=== PATIENT | male | born 1945 | race Caucasian/White ===

== ENCOUNTER 2020-01-28 15:39 | Emergency (ER) | payer OTHER, MEDICARE, SELFPAY ==
[2020-01-28 16:52] VITALS: BP 167/62; PULSE 62; RESP 18; TEMP 36.5; O2SAT 96
--- NOTE | 2020-01-28 17:11 | ED_ITS ---
HPI - Eye Problem General Chief complaint: Eye Problems <STACEY Sood Last Filed: 01/28/20 18:04> Stated complaint: FB IN EYE <STACEY Sood Last Filed: 01/28/20 18:04> Time Seen by Provider: 01/28/20 17:02 <STACEY Sood Last Filed: 01/28/20 18:04> Source: patient <STACEY Sood Last Filed: 01/28/20 18:04> Mode of arrival: ambulatory <STACEY Sood Last Filed: 01/28/20 18:04> Limitations: no limitations <STACEY Sood Last Filed: 01/28/20 18:04> History of Present Illness HPI Narrative: 74-year-old male presenting to the ED with complaints of foreign body and eye. Reports that his stool were backed up therefore he put a replacement and was grinding metal on Friday and since then has been having watery discharge and irritation to left eye. Denies changes in vision. Denies any fevers or any other symptoms related to this. Reports he is up-to-date on tetanus vaccine. <STACYE Sood Last Filed: 01/28/20 18:04> Related Data Home medications: Previous Rx's Medication Instructions Recorded erythromycin 0.5 inch OPHTHALMIC (EYE) QID #3.5 01/28/20 g NS <STACEY Sood Last Filed: 01/28/20 18:04> Allergies/adverse reactions: Allergies Allergy/AdvReac Type Severity Reaction Status Date / Time ibuprofen [IBUPROFEN] Allergy Intermediate ITCHING Verified 01/28/20 17:33 Sulfa (Sulfonamide Allergy Intermediate RASH Verified 01/28/20 17:33 Antibiotics) [SULFA (SULFONAMIDE ANTIBIOTICS)] clarithromycin AdvReac Unknown Verified 01/28/20 17:33 <STACEY Sood Last Filed: 01/28/20 18:04> Review of Systems Review of Systems: Yes all other systems are reviewed and are negative <STACEY Sood Last Filed: 01/28/20 18:04> PMFSH Past Medical History Attestation statement: The following information was validated with the patient. <STACEY Sood Last Filed: 01/28/20 18:04> Medical History: Medical History Acute Crohn's disease PVC (premature ventricular contraction) <STACEY Sood - Last Filed: 01/28/20 18:04> Surgical History: Surgical History Previous back surgery <STACEY Sood - Last Filed: 01/28/20 18:04> Social History Social History: Social History Alcohol intake: former Smoked in Last 30 Days: No Use of substances other than those prescribed or required for medical reasons: No Advance Directives: No Advance Directives Information Provided: No <STACEY Sood - Last Filed: 01/28/20 18:04> Physical Exam Vital Signs: Vital Signs: Vital Signs Temp Pulse Resp BP Pulse Ox 01/28/20 17:23 97.7 F 62 16 167/62 H 96 01/28/20 16:52 97.7 F 62 18 167/62 H 96 Body Mass Index 30.5 <STACEY Sood - Last Filed: 01/28/20 18:04> Vital Signs: Vital Signs Temp Pulse Resp BP Pulse Ox 01/28/20 17:23 97.7 F 62 16 167/62 H 96 01/28/20 16:52 97.7 F 62 18 167/62 H 96 Body Mass Index 30.5 <Abdirizak Connelly MD - Last Filed: 02/01/20 15:09> Const: General: cooperative, healthy appearing, comfortable, no acute distress, well developed, alert, awake and Physically active <STACEY Sood - Last Filed: 01/28/20 18:04> Nutritional Appearance: average body habitus and well nourished <STACEY Sood - Last Filed: 01/28/20 18:04> Orientation/consciousness: patient oriented x3 <STACEY Sood - Last Filed: 01/28/20 18:04> Limitations: no limitations <STACEY Sood - Last Filed: 01/28/20 18:04> HENMT: Head: Yes normal to inspection, Yes No palpable skull fracture present, Yes normocephalic and Yes atraumatic <STACEY Sood - Last Filed: 01/28/20 18:04> Ears: hearing grossly normal bilaterally <STACEY Sood - Last Filed: 01/28/20 18:04> General nose exam: Normal external nose present <STACEY Sood Last Filed: 01/28/20 18:04> Face and sinus: Yes normal facial exam <STACEY Sood - Last Filed: 01/28/20 18:04> Mouth: moist mucous membranes <STACEY Sood - Last Filed: 01/28/20 18:04> Eyes: General: appearance normal, both eyes and all related structures <STACEY Sood - Last Filed: 01/28/20 18:04> Visual Solano: normal visual solano by confrontation <STACEY Sood Last Filed: 01/28/20 18:04> Alignment and Position: alignment normal <STACEY Sood - Last Filed: 01/28/20 18:04> Periorbital: periorbital findings normal <STACEY Sood - Last Filed: 01/28/20 18:04> Eyelids: Yes eyelids normal <STACEY Sood - Last Filed: 01/28/20 18:04> Conjunctivae: conjunctivae normal <STACEY Sood - Last Filed: 01/28/20 18:04> Sclerae: sclerae normal <STACEY Sood - Last Filed: 01/28/20 18:04> Corneas: corneas abnormal (Two foreign bodies noted to the cornea) on the left and fluorescein used <STACEY Sood - Last Filed: 01/28/20 18:04> Pupils: Equal, round and reactive pupils present, Pupils normal by confrontation and Pupil accommodation reflex normal <STACEY Sood - Last Filed: 01/28/20 18:04> EOM: EOMs intact bilaterally <STACEY Sood - Last Filed: 01/28/20 18:04> Direct Ophthalmoscopy: normal light reflex, no photophobia, no papilledema, fundi normal bilaterally and anterior chamber normal <STACEY Sood - Last Filed: 01/28/20 18:04> Neck: Neck: Yes normal visual inspection, Yes full ROM, Yes no lymphadenopathy, Yes no meningeal signs, Yes trachea midline and Yes supple <Wendy Myers [place] - Last Filed: 01/28/20 18:04> Chest: Chest palpation & inspection: normal inspection of the chest <Wendy Myers [employer] Last Filed: 01/28/20 18:04> Resp: Effort & Inspection: normal respiratory effort and able to speak in complete sentences <Wendy Myers [place] - Last Filed: 01/28/20 18:04> Auscultation: clear to auscultation bilaterally, no crackles, no rales, no rhonchi and no wheezes <Wendy Myers [place] - Last Filed: 01/28/20 18:04> Cardio: Rate: regular rate <Wendy Myers [place] - Last Filed: 01/28/20 18:04> Rhythm: regular rhythm <Wendy Myers [place] - Last Filed: 01/28/20 18:04> Heart sounds: S1 normal heart sound present and S2 normal heart sound present <Wendy Myers [place] - Last Filed: 01/28/20 18:04> Peripheral pulses: Peripheral pulses 2+ throughout <Wendy Myers [place] - Last Filed: 01/28/20 18:04> GI: Inspection: Yes normal to inspection <Wendy Myers [place] - Last Filed: 01/28/20 18:04> Palpation (GI): Soft to palpation, nontender and No hepatosplenomegaly present <Wendy Myers [place] - Last Filed: 01/28/20 18:04> Percussion: Yes normal to percussion <Wendy Myers [place] - Last Filed: 01/28/20 18:04> Auscultation: normal bowel sounds <Wendy Myers [place] - Last Filed: 01/28/20 18:04> : General: Yes no CVA tenderness <STACEY Sood - Last Filed: 01/28/20 18:04> Back/Spine/Pelvis: Back: no CVA tenderness <STACEY Sood Last Filed: 01/28/20 18:04> Cervical Spine: normal cervical lordosis and cervical ROM normal <Wendy Myers [place] - Last Filed: 01/28/20 18:04> Thoracic/Lumbar Spine: thoracic and lumbar spine normal to inspection and thoraco-lumbar ROM normal <Wendy Myers [place] - Last Filed: 01/28/20 18:04> Skin: General skin exam: no rashes or lesions noted, elasticity normal and turgor normal <STACEY Sood - Last Filed: 01/28/20 18:04> Trauma: no lacerations or abrasions <Wendy Myers [place] - Last Filed: 01/28/20 18:04> Wounds: no wounds <Wendy Myers [place] - Last Filed: 01/28/20 18:04> Hair: normal <Wendy Myers [place] - Last Filed: 01/28/20 18:04> Nails: normal <Wedny Myers [place] - Last Filed: 01/28/20 18:04> Neuro: General: patient oriented x3 and no meningeal signs <STACEY Sood - Last Filed: 01/28/20 18:04> Cranial nerves: Yes CN's II-XII intact bilaterally and Yes Equal, round and reactive pupils present <Wendy Myers [place] - Last Filed: 01/28/20 18:04> Cognition (Neuro): normal cognition <STACEY Sood - Last Filed: 01/28/20 18:04> Gait exam (Neuro): Normal gait present <STACEY Sood - Last Filed: 01/28/20 18:04> Motor exam (neuro): 5/5 motor strength present throughout <Wendy Myers [place] - Last Filed: 01/28/20 18:04> Extrem: General: Yes normal to inspection, Yes full ROM, Yes capillary refill normal, Yes no clubbing, cyanosis or edema, No no pedal edema, No no calf tenderness, Yes normal gait and No edema <Wendy Myers [place] - Last Filed: 18:04> Right upper extremity: normal to inspection, full ROM and normal capillary refill; no edema <STACEY Sood - Last Filed: 01/28/20 18:04> Left upper extremity: normal to inspection, full ROM and normal capillary refill; no edema <STACEY Sood - Last Filed: 01/28/20 18:04> Right lower extremity: normal to inspection, full ROM and normal capillary refill; no edema <STACEY Sood - Last Filed: 01/28/20 18:04> Left lower extremity: normal to inspection, full ROM and normal capillary refill; no edema <STACEY Sood - Last Filed: 01/28/20 18:04> Psych: Appearance: grossly normal and well kempt <STACEY Sood - Last Filed: 01/28/20 18:04> Mental Status: mental status grossly normal <STACEY Sood - Last Filed: 01/28/20 18:04> Speech and movement: Normal speech and movement present and Clear speech present <STACEY Sood - Last Filed: 01/28/20 18:04> Affect: normal affect <STACEY Sood - Last Filed: 01/28/20 18:04> Attitude: cooperative <STACEY Sood - Last Filed: 01/28/20 18:04> Thought process: Normal thought process present <STACEY Sood - Last Filed: 01/28/20 18:04> Thought content: Normal thought content present <STACEY Sood - Last Filed: 01/28/20 18:04> Insight: Good insight present (Psych) <STACEY Sood - Last Filed: 01/28/20 18:04> Judgement: Good judgement present (Psych) <STACEY Sood - Last Filed: 01/28/20 18:04> Course Course Course Narrative: patient is now status post foreign body removal. Will place on antibiotics and instructions follow up with Dr. Fischer within the next 3 day s. Patient understands agrees with this plan. <STACEY Sood - Last Filed: 01/28/20 18:04> I agree with the history. My physical exam is well developed well nourished, normal cephalic, PERRL, EOMI, normal pharynx, supple neck, lungs clear, CV RRR, abdomen nontender, Neuro intact and nonfocal, psychiatric at baseline. Patient with FB seen under slit lamp <Abdirizak Connelly MD - Last Filed: 02/01/20 15:09> Procedures Procedure Narrative Procedure Narrative: Patient had proparicaine place in eye for anesthesia. Under slit lamp and with tuberculine syringe and needle metal foreign body removed. Rust ring remained. Patient place on topical antibiotics and referred to opthalmology. <Abdirizak Connelly MD - Last Filed: 02/01/20 15:09> FB Removal Eye Time Out performed: Yes <STACEY Sood - Last Filed: 01/28/20 18:04> Location: eye (L) <STACEY Sood - Last Filed: 01/28/20 18:04> Topical anesthetic used: tetracaine <STACEY Sood - Last Filed: 01/28/20 18:04> Foreign body: metal <STACEY Sood - Last Filed: 01/28/20 18:04> Technique: irrigation, cotton tip swab and needle <STACEY Sood Last Filed: 01/28/20 18:04> Procedure performed under: slit-lamp <STACEY Sood - Last Filed: 01/28/20 18:04> Post-procedure medication: ophthalmic antibiotic <STACEY Sood - Last Filed: 01/28/20 18:04> Patient tolerated procedure: well and no complications <STACEY Sood - Last Filed: 01/28/20 18:04> Complications: residual rust ring <STACEY Sood - Last Filed: 01/28/20 18:04> Discharge Plan Discharge Clinical Impression: Corneal rust ring of left eye, Foreign body in eye <STACEY Sood - Last Filed: 01/28/20 18:04> Patient Disposition: Home, Self-Care <STACEY Sood - Last Filed: 01/28/20 18:04> Instructions: Eye Foreign Body (ED) <STACEY Sood Last Filed: 01/28/20 18:04> Prescriptions: New erythromycin 5 mg/gram (0.5 %) ointment 0.5 inch ophthalmic (eye) QID Qty: 3.5 RF: 0 <STACEY Sood Last Filed: 01/28/20 18:04> Referrals: Delano Fischer [Physician] - 1 day <STACEY Sood - Last Filed: 01/28/20 18:04> Interventions: ED Discharge Assessment Last Done: 01/28/20 18:51 <STACEY Sood - Last Filed: 01/28/20 18:04> Discharge Date/Time: 01/28/20 18:35 <STACEY Sood - Last Filed: 01/28/20 18:04> Print Language: Georgian <STACEY Sood - Last Filed: 01/28/20 18:04>
[2020-01-28 17:23] VITALS: BP 167/62; PULSE 62; RESP 16; TEMP 36.5; O2SAT 96; BMI 30.5
--- NOTE | 2020-01-28 17:52 | ED.EYEPROB ---
HPI - Eye Problem General Chief complaint: Eye Problems Stated complaint: FB IN EYE Time Seen by Provider: 01/28/20 17:02 Related Data Allergies Allergy/AdvReac Type Severity Reaction Status Date / Time ibuprofen [IBUPROFEN] Allergy Intermediate ITCHING Verified 01/28/20 17:33 Sulfa (Sulfonamide Allergy Intermediate RASH Verified 01/28/20 17:33 Antibiotics) [SULFA (SULFONAMIDE ANTIBIOTICS)] clarithromycin AdvReac Unknown Verified 01/28/20 17:33 PMFSH Past Medical History Medical History (Updated 01/28/20 @ 17:27 by Guillermina Leal) Acute Crohn's disease PVC (premature ventricular contraction) Surgical History (Updated 01/28/20 @ 17:27 by Guillermina Leal) Previous back surgery Social History Social History Advance Directives: No Advance Directives Information Provided: No Physical Exam Vital Signs: Vital Signs: Vital Signs Temp Pulse Resp BP Pulse Ox 01/28/20 17:23 97.7 F 62 16 167/62 H 96 01/28/20 16:52 97.7 F 62 18 167/62 H 96 Body Mass Index 30.5 Course Course Course Narrative: I agree with the history. My physical exam is well developed well nourished, normal cephalic, PERRL, EOMI, normal pharynx, supple neck, lungs clear, CV RRR, abdomen nontender, Neuro intact and nonfocal, psychiatric at baseline. Left eye with metal foreign body Procedures Procedure Narrative Procedure Narrative: using slit lamp and RUSTY farrell remove metal impaled in cornea
[2020-01-28 18:25] VITALS: BP 166/76; PULSE 58; RESP 18; TEMP 36.6; O2SAT 97
[2020-01-28] MEDS: Tetracaine HCl/PF 0.5% Oph Sol 4 ML DROPS 2 DROP EYE-LEFT (18:34)
[2020-01-28] MEDS: Erythromycin Base 0.5% Oph Oin 1 GM TUBE 1 CM EYE-LEFT (18:35)
[2020-01-28] MEDS: Fluorescein Sodium STRIP 1 STRIP EYE-LEFT (18:35)
== END 2020-01-28 18:35 | disposition home or self-care (01) ==
PROVIDERS: Emergency Provider Emergency Medicine
DX: T15.02XA Foreign body in cornea, left eye, initial encounter (principal); H57.12 Ocular pain, left eye; X58.XXXA Exposure to other specified factors, initial encounter; Y93.9 Activity, unspecified; Y92.9 Unspecified place or not applicable
CPT/HCPCS: 65222; 99283; 99284

== ENCOUNTER 2021-01-18 10:50 | Inpatient (IN) | payer OTHER, SELFPAY ==
--- NOTE | ~2021-01-18 | CT_ITS ---
EXAMINATION: CT ABDOMEN AND PELVIS WITHOUT CONTRAST CLINICAL INFORMATION: Lower abdominal pain and constipation. Rule out obstruction. COMPARISON: Previous CT of the abdomen and pelvis August 2010 TECHNIQUE: Multidetector volumetric imaging was performed from the superior aspect of the liver through the pubic symphysis. Sagittal and coronal reformatted images were obtained on the technologist's workstation. This CT examination was performed using dose optimization techniques as appropriate, variously including the following: *Automated exposure control *Adjustment of mA and/or kV according to patient size (this includes techniques or standardized protocols for targeted exams where dose is matched to indication/reason for exam; i.e. extremities or head) *Use of iterative reconstruction technique DLP: 655 mGy-cm FINDINGS: LUNG BASES: There are increased peripheral interstitial markings questionable for mild interstitial lung. There is a 5 mm peripheral right lower lobe nodule axial image 6 series 3 that is stable from 2011 exam.. LIVER, GALLBLADDER, AND BILIARY TREE: The liver is normal in size, shape, and attenuation. No focal hepatic lesion or biliary ductal dilatation is present. The gallbladder is unremarkable with no evidence of radiopaque gallstones, gallbladder wall thickening, or obvious pericholecystic inflammatory changes. PANCREAS: Unremarkable. SPLEEN: Unremarkable. ADRENAL GLANDS: There is a 1 cm right adrenal nodule that is able 2011 exam. The left adrenal gland is normal. KIDNEYS AND URETERS: The kidneys are normal in size, shape, and attenuation. No hydronephrosis, hydroureter, or calculi seen. No perinephric stranding. BLADDER: Unremarkable. GASTROINTESTINAL TRACT: The colon is redundant. There is stool in the colon suggestive of constipation. There are no dilated loops of bowel to suggest obstruction. The small and large bowel are otherwise unremarkable. The appendix is unremarkable. The stomach is unremarkable. ABDOMINAL WALL: There is a small umbilical hernia containing fat. LYMPH NODES: Normal. VASCULAR: Unremarkable. PELVIC VISCERA: The prostate gland is slightly enlarged measuring 4 x 6 cm OSSEOUS STRUCTURES: There are degenerative changes of the spine. There is increased subchondral sclerosis and lucency in the femoral head suggestive of AVN. CT/CT abdomen pelvis wo con IMPRESSION: Redundant colon and constipation. No evidence of obstruction. Stable right adrenal nodule. Enlarged prostate gland. Question mild interstitial lung disease at the lung bases. Stable small right lower lobe pulmonary nodule. Bilateral femoral head AVN.
[2021-01-18 11:46] VITALS: BP 131/57; PULSE 74; RESP 18; TEMP 36.7; O2SAT 97; BMI 30.9
[2021-01-18 14:19] VITALS: BP 125/66; PULSE 86; RESP 16; O2SAT 98
--- NOTE | 2021-01-18 14:54 | ED.ABDPAIN ---
HPI - Abdominal Pain General Chief Complaint: GI Bleed <STACEY Banegas - Last Filed: 01/18/21 17:45> Stated Complaint: RECTAL BLEEDING <STACEY Banegas - Last Filed: 01/18/21 17:45> Time Seen by Provider: 01/18/21 14:15 <STACEY Banegas - Last Filed: 01/18/21 17:45> Source: patient <STCAEY Banegas - Last Filed: 01/18/21 17:45> Mode of arrival: ambulatory <STACEY Banegas - Last Filed: 01/18/21 17:45> History of Present Illness HPI narrative: 75-year-old male with a past medical history of Crohn's, PVC, presenting to the ED complaining of constipation without BM x3 days. Reports lower abdominal discomfort, also urinary retention since this morning. Reports using OTC medications for constipation and an enema, s/p using enema had large gush of bright red rectal bleeding with pain. Denies nausea, vomiting, fever, chills, dysuria/hematuria. Reports is passing flatus. Denies taking anticoagulation <STACEY Banegas - Last Filed: 01/18/21 17:45> MD elicited complaint: abdominal pain <STACEY Banegas Last Filed: 01/18/21 17:45> Related Data Home Medications: Home Medications Medication Instructions Recorded Confirmed acetaminophen 650 mg tablet 650 mg PO QID PRN 01/18/21 01/18/21 acyclovir 400 mg tablet 400 mg PO BID 01/18/21 01/18/21 albuterol sulfate 90 mcg/actuation 2 puff INHALATION Q4-6H PRN 01/18/21 01/18/21 aerosol inhaler (ProAir HFA) aspirin 81 mg tablet,delayed 81 mg PO DAILY 01/18/21 01/18/21 release atorvastatin 80 mg tablet 80 mg PO DAILY 01/18/21 01/18/21 flecainide 150 mg tablet 150 mg PO Q12H 01/18/21 01/18/21 gabapentin 300 mg capsule 300 mg PO BEDTIME 01/18/21 01/18/21 lisinopril 30 mg tablet 30 mg PO BID 01/18/21 01/18/21 melatonin 1 mg tablet 1 mg PO BEDTIME PRN 01/18/21 01/18/21 montelukast 10 mg tablet 10 mg PO DAILY 01/18/21 01/18/21 tamsulosin 0.4 mg capsule 0.4 mg PO DAILY 01/18/21 01/18/21 tiotropium bromide 2.5 2 puff INHALATION DAILY 01/18/21 01/18/21 mcg/actuation mist for inhalation (Spiriva Respimat) <STACEY Banegas Last Filed: 01/18/21 17:45> Allergies/Adverse Reactions: Allergies Allergy/AdvReac Type Severity Reaction Status Date / Time ibuprofen [IBUPROFEN] Allergy Intermediate ITCHING Verified 01/18/21 11:46 Sulfa (Sulfonamide Allergy Intermediate RASH Verified 01/18/21 11:46 Antibiotics) [SULFA (SULFONAMIDE ANTIBIOTICS)] clarithromycin AdvReac Unknown Verified 01/18/21 11:46 <STACEY Banegas Last Filed: 01/18/21 17:45> Review of Systems Review of Systems Constitutional: No Fever, No Chills,No Fatigue, No Malaise ENT/Mouth: No Ear Pain, No Nasal Congestion, No sore throat Eyes: No Eye Pain, No Swelling, No Redness, No Discharge Cardiovascular: No Chest Pain, No SOB, No Palpitations Respiratory: No Cough, No Dyspnea Gastrointestinal: No Nausea, No Vomiting, No Diarrhea, + Constipation, + Abdominal pain, +brbpr, No Melena Genitourinary: No irregular bleeding, No Dysuria, No Urinary Frequency, No Hematuria, No Flank Pain Musculoskeletal: No joint pain, No Myalgias, No Joint Swelling Skin: No Skin Lesions, No rash Neuro: No Weakness, No Numbness, No Dizziness, No Headache <STACEY Banegas Last Filed: 01/18/21 17:45> Yes all other systems are reviewed and are negative <STACEY Banegas Last Filed: 01/18/21 17:45> Physical Exam Vital Signs: Vital Signs: Last Vital Signs Temp 98.0 F 01/18/21 11:46 Pulse 76 01/18/21 16:21 Resp 16 01/18/21 16:21 BP 154/58 H 01/18/21 16:21 Pulse Ox 98 01/18/21 16:21 Body Mass Index 30.9 <STACEY Banegas Last Filed: 01/18/21 17:45> Vital Signs: Last Vital Signs Temp 98.0 F 01/18/21 11:46 Pulse 76 01/18/21 16:21 Resp 16 01/18/21 16:21 BP 154/58 H 01/18/21 16:21 Pulse Ox 98 01/18/21 16:21 Body Mass Index 30.9 <Rene Jolly MD - Last Filed: 01/18/21 20:00> Const: General: cooperative, healthy appearing and no acute distress <STACEY Banegas - Last Filed: 01/18/21 17:45> Orientation/consciousness: patient oriented x3 <STACEY Banegas - Last Filed: 01/18/21 17:45> Limitations: no limitations <STACEY Banegas - Last Filed: 01/18/21 17:45> HENMT: Head: Yes normal to inspection <STACEY Banegas - Last Filed: 01/18/21 17:45> Ears: hearing grossly normal bilaterally <STACEY Banegas - Last Filed: 01/18/21 17:45> General nose exam: Normal external nose present <STACEY Banegas - Last Filed: 01/18/21 17:45> Face and sinus: Yes normal facial exam <STACEY Banegas - Last Filed: 01/18/21 17:45> Eyes: General: appearance normal, both eyes and all related structures <STACEY Banegas - Last Filed: 01/18/21 17:45> EOM: EOMs intact bilaterally <STACEY Banegas - Last Filed: 01/18/21 17:45> Neck: Neck: Yes normal visual inspection <STACEY Banegas - Last Filed: 01/18/21 17:45> Resp: Effort & Inspection: normal respiratory effort <STACEY Banegas - Last Filed: 01/18/21 17:45> Auscultation: clear to auscultation bilaterally, no rales and no wheezes <STACEY Banegas - Last Filed: 01/18/21 17:45> Cardio: Rate: regular rate <STACEY Banegas - Last Filed: 01/18/21 17:45> Heart sounds: S1 normal heart sound present and S2 normal heart sound present <Gabby Allyssa PA - Last Filed: 01/18/21 17:45> GI: Inspection: Yes normal to inspection <Gabby Allyssa PA - Last Filed: 01/18/21 17:45> Palpation (GI): Soft to palpation, Tenderness to palpation present (GI) (Lower abdomen), no guarding and not rigid <Gabby Allyssa PA - Last Filed: 01/18/21 17:45> Rectal Exam - Male: Yes fecal impaction <Gabby Allyssa PA - Last Filed: 01/18/21 17:45> : General: Yes no CVA tenderness <Gabbyniall Spivey PA - Last Filed: 01/18/21 17:45> Back/Spine/Pelvis: Back: no CVA tenderness <Gabby Allyssa PA - Last Filed: 01/18/21 17:45> Skin: Rashes: no rashes <Gabby Spivey PA - Last Filed: 01/18/21 17:45> Wounds: no wounds <Gabby Allyssa PA - Last Filed: 01/18/21 17:45> Neuro: General: patient oriented x3 <Gabbyniall Spivey PA - Last Filed: 01/18/21 17:45> Gait exam (Neuro): Normal gait present <Gabbyniall Spivey PA - Last Filed: 01/18/21 17:45> Extrem: General: Yes normal to inspection <Gabby Allyssa PA - Last Filed: 01/18/21 17:45> Course Course Course Narrative: -no leukocytosis, H&H 11.5/35.5, occult stool positive > patient reports recently had colonoscopy about 1 year ago at [facility] will try to obtain records -noted hyperkalemia to 6.1 > IV calcium gluconate, insulin, and dextrose ordered. Patient also noted to be an ALIYAH with a BUN of 32, creatinine 1.44 -Moncada catheter placed, patient unable to pass urine. CT abdomen pelvis wo con IMPRESSION: Redundant colon and constipation. No evidence of obstruction. Stable right adrenal nodule. Enlarged prostate gland. Question mild interstitial lung disease at the lung bases. Stable small right lower lobe pulmonary nodule. Bilateral femoral head AVN. > GI consulted. Plan is for admission. -[id number]--patient admitted to hospital service <STACEY Banegas - Last Filed: 01/18/21 17:45> MDM - Abdominal Pain MDM Narrative Medical decision making narrative: 75-year-old male with a past medical history of Crohn's, PVC, presenting to the ED complaining of constipation without BM x3 days with large gush of bright red rectal bleeding with s/p using enema. Reports lower abdominal discomfort, also urinary retention since this morning. On exam VSS, NAD/nontoxic, abdomen soft the lower TTP, fecal impaction noted disimpacted on initial exam, brown stool noted on exam. No CVAT. Patient is nontoxic appearing. Concern for SBO vs constipation vs diverticulitis or appendicitis. Concern for urinary retention. 562 cc on bladder scan Plan: Labs, UA, CT AP, IVF, occult stool, reassess <STACEY Banegas - Last Filed: 01/18/21 17:45> Medical Records Attestation: I reviewed the patient's medical records. <STACEY aBnegas - Last Filed: 01/18/21 17:45> Lab Data Attestation: I reviewed the patient's lab results. <STACEY Banegas - Last Filed: 01/18/21 17:45> Result diagrams: : 01/18/21 14:50 01/18/21 14:50 <STACEY Banegas - Last Filed: 01/18/21 17:45> Labs: Lab Results 01/18/21 01/18/21 01/18/21 Range/Units 14:42 14:50 14:50 WBC 10.4 (4.8-10.8) X10*3/uL RBC 3.50 L (4.60-5.80) X10*6/uL Hgb 11.5 L (14.0-18.0) g/dl Hct 35.5 L (42-52) % MCV 101.4 H (80-98) fL MCH 32.9 (27.0-33.0) pg MCHC 32.4 (31.0-36.0) g/dl RDW 15.3 (11.0-16.0) % Plt Count 232 (160-400) X10*3/uL MPV 9.3 L (9.4-12.4) fL Immature Gran % (Auto) 0.7 H (0.0-0.4) % Neut % (Auto) 78.8 H (45-73) % Lymph % (Auto) 11.4 L (20-40) % [place] % (Auto) 7.7 (2-11) % Eos % (Auto) 1.1 (0-4) % Baso % (Auto) 0.3 (0-2) % Lymph # (Auto) 1.2 (1.2-4.9) X10*3/uL [place] # (Auto) 0.8 (0.1-1.2) X10*3/uL Eos # (Auto) 0.1 (0.0-0.4) X10*3/uL Baso # (Auto) 0.0 (0.0-0.2) X10*3/uL Abs Immat Gran (auto) 0.07 H (0.00-0.03) X10*3/uL Absolute Neuts (auto) 8.2 (2.0-8.3) X10*3/uL Absolute Nucleated RBC 0.000 (0.0-0.012) X10*3/uL Nucleated RBC % (auto) 0.0 (0.0-0.2) /100WBC Sodium 138 (135-145) mmol/L Potassium 6.1 H* (3.3-5.1) mmol/L Chloride 111 H (96-108) mmol/L Carbon Dioxide 19 L (22-29) mmol/L Anion Gap 14 (12-20) BUN 32 H (9-16) mg/dL Creatinine 1.44 H (0.5-1.4) mg/dL Estim Creat Clear Calc 53.4 Estimated GFR 48 Random Glucose 104 (60-115) mg/dL Calcium 9.3 (8.4-10.2) mg/dL Magnesium 2.3 (1.6-2.6) mg/dL Total Bilirubin 0.5 (0.0-1.0) mg/dL Direct Bilirubin 0.2 (0.0-0.5) mg/dL AST 23 (5-37) U/L ALT 33 (0-40) U/L Alkaline Phosphatase 100 (39-117) U/L Total Protein 6.5 (6.5-8.0) g/dL Albumin 4.2 (3.5-5.0) g/dL Lipase 20 (8-78) U/L Urine Color Urine Appearance Urine pH (5.0-8.0) Ur Specific [place] (1.005-1.025) Urine Protein (NEG-TRACE) MG/DL Urine Glucose (UA) (NEG) MG/DL Urine Ketones (NEG) MG/DL Urine Blood (NEG) Urine Nitrite (NEG) Ur Leukocyte Esterase (NEG) Urine RBC (0) /HPF Urine WBC (0-4) /HPF Ur Squamous Epith Cells /LPF Urine Bacteria /LPF Urine Mucus /LPF Stool Occult Blood POSITIVE (NEGATIVE) COVID-19 (JAXON) (Negative) COVID-19 Clin Com 01/18/21 01/18/21 Range/Units 14:51 16:25 WBC (4.8-10.8) X10*3/uL RBC (4.60-5.80) X10*6/uL Hgb (14.0-18.0) g/dl Hct (42-52) % MCV (80-98) fL MCH (27.0-33.0) pg MCHC (31.0-36.0) g/dl RDW (11.0-16.0) % Plt Count (160-400) X10*3/uL MPV (9.4-12.4) fL Immature Gran % (Auto) (0.0-0.4) % Neut % (Auto) (45-73) % Lymph % (Auto) (20-40) % [place] % (Auto) (2-11) % Eos % (Auto) (0-4) % Baso % (Auto) (0-2) % Lymph # (Auto) (1.2-4.9) X10*3/uL [place] # (Auto) (0.1-1.2) X10*3/uL Eos # (Auto) (0.0-0.4) X10*3/uL Baso # (Auto) (0.0-0.2) X10*3/uL Abs Immat Gran (auto) (0.00-0.03) X10*3/uL Absolute Neuts (auto) (2.0-8.3) X10*3/uL Absolute Nucleated RBC (0.0-0.012) X10*3/uL Nucleated RBC % (auto) (0.0-0.2) /100WBC Sodium (135-145) mmol/L Potassium (3.3-5.1) mmol/L Chloride (96-108) mmol/L Carbon Dioxide (22-29) mmol/L Anion Gap (12-20) BUN (9-16) mg/dL Creatinine (0.5-1.4) mg/dL Estim Creat Clear Calc Estimated GFR Random Glucose (60-115) mg/dL Calcium (8.4-10.2) mg/dL Magnesium (1.6-2.6) mg/dL Total Bilirubin (0.0-1.0) mg/dL Direct Bilirubin (0.0-0.5) mg/dL AST (5-37) U/L ALT (0-40) U/L Alkaline Phosphatase (39-117) U/L Total Protein (6.5-8.0) g/dL Albumin (3.5-5.0) g/dL Lipase (8-78) U/L Urine Color YELLOW Urine Appearance CLEAR Urine pH 6.5 (5.0-8.0) Ur Specific [place] 1.020 (1.005-1.025) Urine Protein NEG (NEG-TRACE) MG/DL Urine Glucose (UA) NEG (NEG) MG/DL Urine Ketones NEG (NEG) MG/DL Urine Blood TRACE (NEG) Urine Nitrite NEG (NEG) Ur Leukocyte Esterase NEG (NEG) Urine RBC 1-4 (0) /HPF Urine WBC 0 (0-4) /HPF Ur Squamous Epith Cells TRACE /LPF Urine Bacteria TRACE /LPF Urine Mucus TRACE /LPF Stool Occult Blood (NEGATIVE) COVID-19 (JAXON) Negative (Negative) COVID-19 Clin Com See Note <STACEY Banegas - Last Filed: 01/18/21 17:45> Lab Results 01/18/21 01/18/21 01/18/21 Range/Units 14:42 14:50 14:50 WBC 10.4 (4.8-10.8) X10*3/uL RBC 3.50 L (4.60-5.80) X10*6/uL Hgb 11.5 L (14.0-18.0) g/dl Hct 35.5 L (42-52) % MCV 101.4 H (80-98) fL MCH 32.9 (27.0-33.0) pg MCHC 32.4 (31.0-36.0) g/dl RDW 15.3 (11.0-16.0) % Plt Count 232 (160-400) X10*3/uL MPV 9.3 L (9.4-12.4) fL Immature Gran % (Auto) 0.7 H (0.0-0.4) % Neut % (Auto) 78.8 H (45-73) % Lymph % (Auto) 11.4 L (20-40) % [place] % (Auto) 7.7 (2-11) % Eos % (Auto) 1.1 (0-4) % Baso % (Auto) 0.3 (0-2) % Lymph # (Auto) 1.2 (1.2-4.9) X10*3/uL [place] # (Auto) 0.8 (0.1-1.2) X10*3/uL Eos # (Auto) 0.1 (0.0-0.4) X10*3/uL Baso # (Auto) 0.0 (0.0-0.2) X10*3/uL Abs Immat Gran (auto) 0.07 H (0.00-0.03) X10*3/uL Absolute Neuts (auto) 8.2 (2.0-8.3) X10*3/uL Absolute Nucleated RBC 0.000 (0.0-0.012) X10*3/uL Nucleated RBC % (auto) 0.0 (0.0-0.2) /100WBC Sodium 138 (135-145) mmol/L Potassium 6.1 H* (3.3-5.1) mmol/L Chloride 111 H (96-108) mmol/L Carbon Dioxide 19 L (22-29) mmol/L Anion Gap 14 (12-20) BUN 32 H (9-16) mg/dL Creatinine 1.44 H (0.5-1.4) mg/dL Estim Creat Clear Calc 53.4 Estimated GFR 48 Random Glucose 104 (60-115) mg/dL Calcium 9.3 (8.4-10.2) mg/dL Magnesium 2.3 (1.6-2.6) mg/dL Total Bilirubin 0.5 (0.0-1.0) mg/dL Direct Bilirubin 0.2 (0.0-0.5) mg/dL AST 23 (5-37) U/L ALT 33 (0-40) U/L Alkaline Phosphatase 100 (39-117) U/L Total Protein 6.5 (6.5-8.0) g/dL Albumin 4.2 (3.5-5.0) g/dL Lipase 20 (8-78) U/L Urine Color Urine Appearance Urine pH (5.0-8.0) Ur Specific [place] (1.005-1.025) Urine Protein (NEG-TRACE) MG/DL Urine Glucose (UA) (NEG) MG/DL Urine Ketones (NEG) MG/DL Urine Blood (NEG) Urine Nitrite (NEG) Ur Leukocyte Esterase (NEG) Urine RBC (0) /HPF Urine WBC (0-4) /HPF Ur Squamous Epith Cells /LPF Urine Bacteria /LPF Urine Mucus /LPF Stool Occult Blood POSITIVE (NEGATIVE) COVID-19 (JAXON) (Negative) COVID-19 Clin Com 01/18/21 01/18/21 Range/Units 14:51 16:25 WBC (4.8-10.8) X10*3/uL RBC (4.60-5.80) X10*6/uL Hgb (14.0-18.0) g/dl Hct (42-52) % MCV (80-98) fL MCH (27.0-33.0) pg MCHC (31.0-36.0) g/dl RDW (11.0-16.0) % Plt Count (160-400) X10*3/uL MPV (9.4-12.4) fL Immature Gran % (Auto) (0.0-0.4) % Neut % (Auto) (45-73) % Lymph % (Auto) (20-40) % [place] % (Auto) (2-11) % Eos % (Auto) (0-4) % Baso % (Auto) (0-2) % Lymph # (Auto) (1.2-4.9) X10*3/uL [place] # (Auto) (0.1-1.2) X10*3/uL Eos # (Auto) (0.0-0.4) X10*3/uL Baso # (Auto) (0.0-0.2) X10*3/uL Abs Immat Gran (auto) (0.00-0.03) X10*3/uL Absolute Neuts (auto) (2.0-8.3) X10*3/uL Absolute Nucleated RBC (0.0-0.012) X10*3/uL Nucleated RBC % (auto) (0.0-0.2) /100WBC Sodium (135-145) mmol/L Potassium (3.3-5.1) mmol/L Chloride (96-108) mmol/L Carbon Dioxide (22-29) mmol/L Anion Gap (12-20) BUN (9-16) mg/dL Creatinine (0.5-1.4) mg/dL Estim Creat Clear Calc Estimated GFR Random Glucose (60-115) mg/dL Calcium (8.4-10.2) mg/dL Magnesium (1.6-2.6) mg/dL Total Bilirubin (0.0-1.0) mg/dL Direct Bilirubin (0.0-0.5) mg/dL AST (5-37) U/L ALT (0-40) U/L Alkaline Phosphatase (39-117) U/L Total Protein (6.5-8.0) g/dL Albumin (3.5-5.0) g/dL Lipase (8-78) U/L Urine Color YELLOW Urine Appearance CLEAR Urine pH 6.5 (5.0-8.0) Ur Specific [place] 1.020 (1.005-1.025) Urine Protein NEG (NEG-TRACE) MG/DL Urine Glucose (UA) NEG (NEG) MG/DL Urine Ketones NEG (NEG) MG/DL Urine Blood TRACE (NEG) Urine Nitrite NEG (NEG) Ur Leukocyte Esterase NEG (NEG) Urine RBC 1-4 (0) /HPF Urine WBC 0 (0-4) /HPF Ur Squamous Epith Cells TRACE /LPF Urine Bacteria TRACE /LPF Urine Mucus TRACE /LPF Stool Occult Blood (NEGATIVE) COVID-19 (JAXON) Negative (Negative) COVID-19 Clin Com See Note <Rene Jolly MD - Last Filed: 01/18/21 20:00> ECG Data Attestation: I personally reviewed and interpreted this ECG as follows: <STACEY Banegas - Last Filed: 01/18/21 17:45> ECG interpretation date: 01/18/21 <STACEY Banegas - Last Filed: 01/18/21 17:45> ECG interpretation time: 15:51 <STACEY Banegas - Last Filed: 01/18/21 17:45> Interpretation: EKG normal sinus rhythm with first-degree AV block Rate of 78 QTC 458 No STEMI/nonischemic <STACEY Banegas - Last Filed: 01/18/21 17:45> Discharge Plan Discharge Clinical Impression: Acute GI bleeding, Acute urinary retention <STACEY Banegas - Last Filed: 01/18/21 17:45> Patient Disposition: Admitted As Inpatient <STACEY Banegas - Last Filed: 01/18/21 17:45> [facility] Past Medical History Attestation statement: The following information was validated with the patient. <STACEY Banegas - Last Filed: 01/18/21 17:45> Medical History: Medical History Acute Crohn's disease PVC (premature ventricular contraction) <STACEY Banegas - Last Filed: 01/18/21 17:45> Surgical History: Surgical History Previous back surgery <STACEY Banegas - Last Filed: 01/18/21 17:45> Social History Social History: Social History Alcohol intake: former Advance Directives: Yes Advance Directives Information Provided: Yes Advance Directives on File: No <STACEY Banegas - Last Filed: 01/18/21 17:45>
[2021-01-18 14:56] LABS: MANUAL DIFF FLAG NO
[2021-01-18 14:58] LABS: Basophils Percent Auto 0.3 % (0-2); Eosinophils Absolute Auto 0.1 X10*3/uL (0.0-0.4); Eosinophils Percent Auto 1.1 % (0-4); Hematocrit 35.5 % (42-52); Hemoglobin 11.5 g/dl (14.0-18.0); Imm Gran Abs Auto 0.07 X10*3/uL (0.00-0.03); Imm Gran Pct Auto 0.7 % (0.0-0.4); Lymphocytes Absolute Auto 1.2 X10*3/uL (1.2-4.9); Lymphocytes Percent Auto 11.4 % (20-40); Mean Corpuscular HGB Conc 32.4 g/dl (31.0-36.0); Mean Corpuscular Hemoglobin 32.9 pg (27.0-33.0); Mean Corpuscular Volume 101.4 fL (80-98); Mean Platelet Volume 9.3 fL (9.4-12.4); Monocytes Absolute Auto 0.8 X10*3/uL (0.1-1.2); Monocytes Percent Auto 7.7 % (2-11); Neutrophils Absolute Auto 8.2 X10*3/uL (2.0-8.3); Neutrophils Percent Auto 78.8 % (45-73); Platelet Count 232 X10*3/uL (160-400); Red Cell Distribution Width 15.3 % (11.0-16.0); White Blood Count 10.4 X10*3/uL (4.8-10.8)
[2021-01-18 15:05] LABS: OBS Int Ctl Valid YES; OBS1 POSITIVE (NEGATIVE)
[2021-01-18 15:13] LABS: COVID-19 Test Negative (Negative)
[2021-01-18] MEDS: 0.9 % Sodium Chloride 1,000 ML 999 ML IVCONT ×2 (15:13→16:34)
[2021-01-18 15:34] LABS: Alanine Aminotransferase 33 U/L (0-40); Albumin Level 4.2 g/dL (3.5-5.0); Alkaline Phosphatase 100 U/L (39-117); Anion Gap 14 (12-20); Aspartate Amino Transferase 23 U/L (5-37); Bilirubin Direct 0.2 mg/dL (0.0-0.5); Bilirubin Total 0.5 mg/dL (0.0-1.0); Blood Urea Nitrogen 32 mg/dL (9-16); Calcium 9.3 mg/dL (8.4-10.2); Carbon Dioxide 19 mmol/L (22-29); Chloride 111 mmol/L (96-108); Creatinine Clr Calc Pharmacy 53.4; Estimated Glomerular Filt Rate 48; Glucose Random 104 mg/dL (60-115); Lipase 20 U/L (8-78); Magnesium 2.3 mg/dL (1.6-2.6); Potassium 6.1 mmol/L (3.3-5.1); Sodium 138 mmol/L (135-145); Total Protein 6.5 g/dL (6.5-8.0)
--- NOTE | 2021-01-18 15:40 | ECG_ITS ---
Test Reason : HYPERKALEMIA Blood Pressure : / mmHG Vent. Rate : 078 BPM Atrial Rate : 078 BPM P-R Int : 212 ms QRS Dur : 120 ms QT Int : 402 ms P-R-T Axes : 056 -36 042 degrees QTc Int : 458 ms Sinus rhythm with 1st degree A-V block Left axis deviation Non-specific intra-ventricular conduction delay Abnormal ECG When compared with ECG of 10-OCT-2012 09:04, [place] interval has increased QRS duration has increased Heart rate has increased Referred By: Gabby Spivey Electronically Signed By:KAYA BERTRAND MD
[2021-01-18 16:21] VITALS: BP 154/58; PULSE 76; RESP 16; O2SAT 98
[2021-01-18] MEDS: Insulin Regular, Human 100 UNIT/ML 3 ML VIAL 10 UNIT IVPUSH (16:23)
[2021-01-18] MEDS: Calcium Gluconate/NaCl,Iso-Osm 1 GM/50 ML PLAST..BAG IV (16:29)
[2021-01-18 16:34] LABS: Appearance Urine CLEAR; Color Urine YELLOW; Glucose Urine UA NEG (NEG); Leukocyte Esterase Urine NEG (NEG); Nitrite Urine NEG (NEG); PH 6.5 (5.0-8.0); UACC Culture Trigger NO; Urine Blood TRACE (NEG); Urine Ketones NEG (NEG); Urine Protein NEG (NEG-TRACE)
[2021-01-18 16:42] LABS: Bacteria Urine TRACE /LPF; Mucus Urine TRACE /LPF; Squamous Epithelial Cell Urine TRACE /LPF; WBC Urine 0 /HPF (0-4)
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
[2021-01-18] MEDS: Lactated Ringers 1,000 ML 80 ML IVCONT (19:54)
[2021-01-18 20:00] VITALS: BP 92/60; PULSE 95; RESP 18; O2SAT 97
[2021-01-18] MEDS: Gabapentin 300 MG CAPSULE PO (22:30)
[2021-01-18] MEDS: Docusate Sodium 100 MG CAPSULE PO (22:30)
[2021-01-18] MEDS: Tamsulosin HCL 0.4 MG CAPSULE PO (22:30)
[2021-01-18 22:31] VITALS: BP 136/51; PULSE 82
[2021-01-18] MEDS: Acetaminophen 325 MG TABLET 650 MG PO (22:31)
[2021-01-18] MEDS: Flecainide Acetate 50 MG TABLET 150 MG PO (22:31)
[2021-01-18] MEDS: Acyclovir 200 MG CAPSULE 400 MG PO (22:33)
[2021-01-18 22:49] VITALS: PULSE 82; RESP 19; O2SAT 98
[2021-01-19] VITALS (7 sets, daily range): BP systolic 123–136; BP diastolic 57–61; PULSE 79–93; RESP 17–19; TEMP 36.4–37.6; O2SAT 96–100
[2021-01-19] MEDS: 0.9 % Sodium Chloride Flush 3 ML SYRINGE IVFLUSH ×2 (01:44→09:55)
[2021-01-19 07:01] LABS: Hematocrit 35.1 % (42-52); Hemoglobin 11.2 g/dl (14.0-18.0); Mean Corpuscular HGB Conc 31.9 g/dl (31.0-36.0); Mean Corpuscular Hemoglobin 32.4 pg (27.0-33.0); Mean Corpuscular Volume 101.4 fL (80-98); Mean Platelet Volume 9.7 fL (9.4-12.4); Platelet Count 236 X10*3/uL (160-400); Red Blood Count 3.46 X10*6/uL (4.60-5.80); Red Cell Distribution Width 15.3 % (11.0-16.0); White Blood Count 9.2 X10*3/uL (4.8-10.8)
[2021-01-19 07:27] LABS: Anion Gap 13 (12-20); Blood Urea Nitrogen 23 mg/dL (9-16); Calcium 9.2 mg/dL (8.4-10.2); Carbon Dioxide 21 mmol/L (22-29); Chloride 110 mmol/L (96-108); Creatinine Clr Calc Pharmacy 64.6; Estimated Glomerular Filt Rate 59; Glucose Random 96 mg/dL (60-115); Potassium 5.4 mmol/L (3.3-5.1); Sodium 139 mmol/L (135-145)
--- NOTE | 2021-01-19 08:00 | PM.OP ---
Brief Operative Note Date of Service: 01/19/21 Pre-op diagnosis: sdreening Post-op diagnosis: same Procedure: colonoscopy Surgeon: Carlos Freitas Anesthesia: MAC Was an Exterior Interior Specialist used for this Procedure?: No Estimated blood loss (mL): 0 Pathology: none sent Condition: stable Disposition: PACU
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
[2021-01-19] MEDS: Flecainide Acetate 50 MG TABLET 150 MG PO (09:38)
[2021-01-19] MEDS: Acyclovir 200 MG CAPSULE 400 MG PO (09:38)
[2021-01-19] MEDS: polyethylene glycoL 3350 17 GM POWD.PACK PO (09:38)
[2021-01-19] MEDS: Montelukast Sodium 10 MG TABLET PO (09:56)
[2021-01-19] MEDS: Lactated Ringers 1,000 ML 80 ML IVCONT (10:03)
[2021-01-19] MEDS: Lactulose 20 GM/30 ML SOLUTION PO (12:15)
--- NOTE | 2021-01-19 12:29 | PM.DS ---
DS: Providers Provider Date of Service: 01/19/21 Date of admission: 01/18/21 18:01 Primary care physician: Joann Arizmendi NP Attending physician on discharge: Oscar Cano Discharging clinician: Triny Wilson DS: Diagnosis Discharge Diagnosis (1) Hyperkalemia: Status: Acute (2) Acute kidney injury: Status: Acute (3) Acute GI bleeding: Status: Acute (4) Acute urinary retention: Status: Acute (5) Sleep apnea: Status: Acute (6) Crohn's disease: Status: Acute DS: Summary Hospital Course Hospital Course: From H&P on day of admission 75-year-old male with a past medical history of Crohn's not on any medication, PVC, presenting to the ED complaining of constipation x3 days, associated with lower abdominal discomfort, urinary retention since this morning, patient denies associated nausea vomiting, no fevers no chills, patient took OTC glycerin suppository, with no relief in symptoms therefore tried enema no where to place it so after struggling he was finally able to place it in rectum and notice bright red blood with pain that prompted him to come to the hospital, in the emergency room CT abdomen and pelvis showed, constipation no evidence of obstruction, enlarged prostate and mild interstitial lung disease, lab data? showed an elevated potassium of 6.1 and a creatinine of 1.44 with no history of chronic kidney disease.? In ER patient was disimpacted large amount of stool was removed, a Moncada catheter was placed in 1 L of fluid was removed, patient is now being admitted for rectal bleed, hyperkalemia with acute renal failure Acute Rectal bleed/constipation/abdominal pain. Bleeding was likely due to trauma with use of enema. Abdominal pain resolved and was likely related to straining/constipation. There have been no further episodes of rectal bleeding. H/H has remained stable. He was started on MiraLax and stool softener with good effect. He will be discharged with bowel regimen. Urinary retention Likely due to enlarged prostate, seen on CT abdomen, and exacerbated by constipation. Noted to have difficulty in urination bladder scan greater than 500 in the emergency room therefore Moncada catheter was placed. Flomax was continued and recommend outpatient follow-up with Urology. Moncada catheter was removed and he was able to void on his own. Hyperkalemia/ALIYAH Status post insulin/calcium gluconate in EKG. EKG reviewed shows prolonged AL interval and QRS duration, no peaked T-waves. Likely related to mild renal insufficiency in use of [place] inhibitor. Lisinopril has been discontinued. Patient has been started on Norvasc for blood pressure control. He should call to schedule follow-up appointment with PCP for blood pressure monitoring. Time Spent with Patient Time attestation: Total time spent providing and/or coordinating discharge services: Discharge coordination time: Greater than 30 minutes Quality: Stroke Does the patient have a stroke diagnosis?: No Physical Exam Vital Signs: Vital Signs: Last Vital Signs Temp 98.6 F 01/19/21 12:00 Pulse 79 01/19/21 12:00 Resp 18 01/19/21 12:00 BP 123/57 L 01/19/21 12:00 Pulse Ox 96 01/19/21 12:00 Body Mass Index 30.9 Const: Nutritional Appearance: well nourished Orientation/consciousness: patient oriented x3 HENMT: Head: Yes normocephalic and Yes atraumatic Eyes: Sclerae: sclerae normal Resp: Effort & Inspection: normal respiratory effort and no respiratory distress Cardio: Rate: regular rate Rhythm: regular rhythm GI: Palpation (GI): Soft to palpation and nontender Neuro: General: patient oriented x3 Cranial nerves: Yes CN's II-XII intact bilaterally and Yes Bilaterally intact EOM present DS: Data Data Completed and Pending Labs on day of discharge: Laboratory Results - last 24 hr 01/18/21 01/18/21 01/18/21 14:42 14:50 14:50 WBC 10.4 RBC 3.50 L Hgb 11.5 L Hct 35.5 L MCV 101.4 H MCH 32.9 MCHC 32.4 RDW 15.3 Plt Count 232 MPV 9.3 L Immature Gran % (Auto) 0.7 H Neut % (Auto) 78.8 H Lymph % (Auto) 11.4 L [place] % (Auto) 7.7 Eos % (Auto) 1.1 Baso % (Auto) 0.3 Lymph # (Auto) 1.2 [place] # (Auto) 0.8 Eos # (Auto) 0.1 Baso # (Auto) 0.0 Abs Immat Gran (auto) 0.07 H Absolute Neuts (auto) 8.2 Absolute Nucleated RBC 0.000 Nucleated RBC % (auto) 0.0 Sodium 138 Potassium 6.1 H* Chloride 111 H Carbon Dioxide 19 L Anion Gap 14 BUN 32 H Creatinine 1.44 H Estim Creat Clear Calc 53.4 Estimated GFR 48 Random Glucose 104 Calcium 9.3 Magnesium 2.3 Total Bilirubin 0.5 Direct Bilirubin 0.2 AST 23 ALT 33 Alkaline Phosphatase 100 Total Protein 6.5 Albumin 4.2 Lipase 20 Urine Color Urine Appearance Urine pH Ur Specific [place] Urine Protein Urine Glucose (UA) Urine Ketones Urine Blood Urine Nitrite Ur Leukocyte Esterase Urine RBC Urine WBC Ur Squamous Epith Cells Urine Bacteria Urine Mucus Stool Occult Blood POSITIVE COVID-19 ([facility]) COVID-19 Clin Com 01/18/21 01/18/21 01/19/21 14:51 16:25 06:27 WBC 9.2 RBC 3.46 L Hgb 11.2 L Hct 35.1 L MCV 101.4 H MCH 32.4 MCHC 31.9 RDW 15.3 Plt Count 236 MPV 9.7 Immature Gran % (Auto) Neut % (Auto) Lymph % (Auto) [place] % (Auto) Eos % (Auto) Baso % (Auto) Lymph # (Auto) [place] # (Auto) Eos # (Auto) Baso # (Auto) Abs Immat Gran (auto) Absolute Neuts (auto) Absolute Nucleated RBC 0.000 Nucleated RBC % (auto) 0.0 Sodium Potassium Chloride Carbon Dioxide Anion Gap BUN Creatinine Estim Creat Clear Calc Estimated GFR Random Glucose Calcium Magnesium Total Bilirubin Direct Bilirubin AST ALT Alkaline Phosphatase Total Protein Albumin Lipase Urine Color YELLOW Urine Appearance CLEAR Urine pH 6.5 Ur Specific [place] 1.020 Urine Protein NEG Urine Glucose (UA) NEG Urine Ketones NEG Urine Blood TRACE Urine Nitrite NEG Ur Leukocyte Esterase NEG Urine RBC 1-4 Urine WBC 0 Ur Squamous Epith Cells TRACE Urine Bacteria TRACE Urine Mucus TRACE Stool Occult Blood COVID-19 ([facility]) Negative COVID-19 Clin Com See Note 01/19/21 06:27 WBC RBC Hgb Hct MCV MCH MCHC RDW Plt Count MPV Immature Gran % (Auto) Neut % (Auto) Lymph % (Auto) [place] % (Auto) Eos % (Auto) Baso % (Auto) Lymph # (Auto) [place] # (Auto) Eos # (Auto) Baso # (Auto) Abs Immat Gran (auto) Absolute Neuts (auto) Absolute Nucleated RBC Nucleated RBC % (auto) Sodium 139 Potassium 5.4 H Chloride 110 H Carbon Dioxide 21 L Anion Gap 13 BUN 23 H Creatinine 1.19 Estim Creat Clear Calc 64.6 Estimated GFR 59 Random Glucose 96 Calcium 9.2 Magnesium Total Bilirubin Direct Bilirubin AST ALT Alkaline Phosphatase Total Protein Albumin Lipase Urine Color Urine Appearance Urine pH Ur Specific [place] Urine Protein Urine Glucose (UA) Urine Ketones Urine Blood Urine Nitrite Ur Leukocyte Esterase Urine RBC Urine WBC Ur Squamous Epith Cells Urine Bacteria Urine Mucus Stool Occult Blood COVID-19 ([facility]) COVID-19 Clin Com Discharge Plan Discharge Patient Disposition: Home, Self-Care Discharge Diagnosis: ALIYAH Hyperkalemia Rectal bleeding Constipation Referrals: Joann Arizmendi, CLIENT PARTNER [Primary Care Provider] - 1 Week Discharge Medications: New amlodipine [Norvasc] 5 mg tablet 5 mg PO DAILY 30 Days Qty: 30 RF: 0 docusate sodium [Colace] 100 mg capsule 100 mg PO DAILY 30 Days Qty: 30 RF: 0 polyethylene glycol 3350 [Miralax] 17 gram/dose powder 17 g PO DAILY 30 Days Qty: 510 RF: 0 Continued atorvastatin 80 mg Tablet 80 mg PO DAILY RF: 0 flecainide 150 mg Tablet 150 mg PO Q12H RF: 0 acyclovir 400 mg Tablet 400 mg PO BID RF: 0 aspirin 81 mg Tablet,Delayed Release (Dr/Ec) 81 mg PO DAILY RF: 0 acetaminophen 650 mg Tablet 650 mg PO QID PRN (Reason: Pain) RF: 0 gabapentin 300 mg Capsule 300 mg PO BEDTIME RF: 0 montelukast 10 mg Tablet 10 mg PO DAILY RF: 0 albuterol sulfate [ProAir HFA] 90 mcg/actuation Hfa Aerosol Inhaler 2 puff INHALATION Q4-6H PRN (Reason: Wheezing) RF: 0 melatonin 1 mg Tablet 1 mg PO BEDTIME PRN (Reason: Insomnia) RF: 0 Spiriva Respimat 2.5 mcg/actuation Mist 2 puff INHALATION DAILY RF: 0 tamsulosin 0.4 mg Capsule 0.4 mg PO DAILY RF: 0 Discontinued lisinopril 30 mg Tablet 30 mg PO BID RF: 0 Discharge Orders: Discharge Order (Routine); Ordered 01/19/21 Ordered By: Triny Wilson Activity on Discharge: As tolerated Stand Alone Forms: Patient Portal Discharge page Care Plan Goals: stay healthy and out of the hospital Health Concerns: Elevated kidney function Elevated potassium level Constipation Rectal bleeding Urinary retention Plan of Treatment: Start taking bowel regimen to assist with constipation Follow up with your urologist Your kidney function and potassium levels have improved Call to schedule follow up appointment with PCP Your blood pressure medication has been changed from Lisinopril to Amlodipine Call to schedule follow up appointment with your PCP Assessment: See discharge summary
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
[2021-01-19 14:46] LABS: Potassium 5.2 mmol/L (3.3-5.1)
== END 2021-01-19 17:23 | disposition home or self-care (01) | DRG 386 ==
LOC: HO.ED 16:28 → HO.EDOVER 18:11 → HO.S3 01-19 07:14
PROVIDERS: Physician Assistant; Admitting Provider Physician Assistant Medical; Emergency Provider Emergency Medicine; PCP Nurse Practitioner Family; Visit Provider Physician Assistant Medical
DX: K50.911 Crohn's disease, unspecified, with rectal bleeding (principal); N17.9 Acute kidney failure, unspecified; E87.5 Hyperkalemia; K59.00 Constipation, unspecified; N40.1 Benign prostatic hyperplasia with lower urinary tract symptoms; R33.8 Other retention of urine; G47.30 Sleep apnea, unspecified; J44.9 Chronic obstructive pulmonary disease, unspecified; Z20.822 Contact with and (suspected) exposure to COVID-19; Z88.2 Allergy status to sulfonamides; Z88.6 Allergy status to analgesic agent; Z79.82 Long term (current) use of aspirin; Z79.899 Other long term (current) drug therapy
CPT/HCPCS: 36415; 74176; 80048; 80076; 81001; 82272; 83690; 83735; 84132; 85025; 85027; 87635; 93005; 94660; 99285; J0610

== ENCOUNTER 2023-06-25 11:50 | Emergency (ER) | payer OTHER, SELFPAY ==
[2023-06-25 12:28] VITALS: BP 119/71; PULSE 89; RESP 16; TEMP 37.1; O2SAT 98; BMI 31.2
--- NOTE | 2023-06-25 12:33 | ED_ITS ---
HPI - General Adult General Chief complaint: General Medical Stated complaint: Constipated Time Seen by Provider: 06/25/23 13:26 Source: patient Mode of arrival: ambulatory Limitations: no limitations History of Present Illness HPI narrative: 77-year-old male history of Crohn's disease, sleep apnea, COPD, who presents emergency department for evaluation constipation. Patient states he had a total knee replacement 06/03/2023 is been taking oxycodone 3 times a day for his pain. He states that for the past week he has not been able to move his bowels. He states that he had a small bowel movement today but it was liquidy and he feels like he is impacted. He states his abdomen is bloated. He had nausea but no vomiting. He denied fever or chills. Related Data Home Medications Medication Instructions Recorded Confirmed acetaminophen 650 mg tablet 650 mg PO QID PRN Pain 01/18/21 01/18/21 acyclovir 400 mg tablet 400 mg PO BID 01/18/21 01/18/21 albuterol sulfate 90 mcg/actuation 2 puff inhalation Q4-6H PRN 01/18/21 01/18/21 aerosol inhaler (ProAir HFA) Wheezing aspirin 81 mg tablet,delayed 81 mg PO DAILY 01/18/21 01/18/21 release atorvastatin 80 mg tablet 80 mg PO DAILY 01/18/21 01/18/21 flecainide 150 mg tablet 150 mg PO Q12H 01/18/21 01/18/21 gabapentin 300 mg capsule 300 mg PO BEDTIME 01/18/21 01/18/21 melatonin 1 mg tablet 1 mg PO BEDTIME PRN Insomnia 01/18/21 01/18/21 montelukast 10 mg tablet 10 mg PO DAILY 01/18/21 01/18/21 tamsulosin 0.4 mg capsule 0.4 mg PO DAILY 01/18/21 01/18/21 tiotropium bromide 2.5 2 puff inhalation DAILY 01/18/21 01/18/21 mcg/actuation mist for inhalation (Spiriva Respimat) Previous Rx's Medication Instructions Recorded amlodipine 5 mg tablet (Norvasc) 5 mg PO DAILY 30 days #30 tabs 01/19/21 docusate sodium 100 mg capsule 100 mg PO DAILY 30 days #30 caps 01/19/21 (Colace) polyethylene glycol 3350 17 17 g PO DAILY 30 days #510 grams 01/19/21 gram/dose oral powder (Miralax) Allergies Allergy/AdvReac Type Severity Reaction Status Date / Time ibuprofen [IBUPROFEN] Allergy Intermediate ITCHING Verified 01/18/21 11:46 Sulfa (Sulfonamide Allergy Intermediate RASH Verified 01/18/21 11:46 Antibiotics) [SULFA (SULFONAMIDE ANTIBIOTICS)] clarithromycin AdvReac Unknown Verified 01/18/21 11:46 Review of Systems 2 Review of Systems: Yes all other systems are reviewed and are negative COUNTS INCLUDE 234 BEDS AT THE [facility] Past Medical History Medical History Acute Crohn's disease PVC (premature ventricular contraction) Surgical History Previous back surgery Social History Social History Household Members: None Housing: Apartment Do you presently have visiting nurse or other home services: No Alcohol intake: never Patient Tobacco Use Status: Never used Tobacco Smoked in Last 30 Days: No Second Hand Smoke Exposure: No Use of substances other than those prescribed or required for medical reasons: No Advance Directives: No Advance Directives Date on File: 01/19/21 service: Yes Current occupational status: retired Physical Exam ED Vital Signs: Vital Signs - 24 hr 06/25/23 12:28 06/25/23 14:49 Temperature 98.7 F Pulse Rate 89 83 Respiratory Rate 16 16 Blood Pressure 119/71 142/54 H Pulse Oximetry 98 97 Oxygen Delivery Method Room Air Room Air BMI result Body Mass Index 31.2 Vital signs Exam: General: Awake, alert in no distress Head: Normocephalic, atraumatic Lung: breath sounds symmetric, no wheezing, rales or rhonchi Heart: regular rate and rhythm, normal S1, S2 no murmurs or rubs Abdomen: soft, non-tender, nondistended, normal bowel sounds Rectal exam: Patient has hard balls of stool in the rectum, patient was disimpacted. Back: no vertebral tenderness, no CVAT Psych: Pleasant, cooperative Course Course Course Narrative: Patient complains of constipation for 4 days, he is taking Percocet since a knee replacement several days ago Patient has Crohn's disease No abdominal pain now This is rapid medical exam done in triage pending full evaluation and dispo by ER provider Labs ordered Procedures Procedure Narrative Procedure Narrative: Fecal disimpaction: Patient was placed in the right lateral decubitus position. Rectal exam did reveal large amounts of hard stool in the rectum, patient was mainly disimpacted by me. Patient tolerated the procedure well. Medical Decision Making Medical Decision Making [facility] Narrative: 77-year-old male history of Crohn's disease, sleep apnea, COPD, who presents emergency department for evaluation constipation. Patient states he had a total knee replacement 06/03/2023 is been taking oxycodone 3 times a day for his pain. He states that for the past week he has not been able to move his bowels. Vital signs were normal. Abdominal exam was unremarkable. Rectal exam did reveal impacted stool. Differential diagnosis: ?Includes but is not limited to bowel obstruction, obstipation, fecal impaction, constantly Following evaluation was ordered: CBC, BMP, lipase, urinalysis Patient was initially treated with the following: Manual disimpaction, soapsuds enema Course: My interpretation patient's laboratory evaluation is as follows: WBC elevated 14,000, H&H was normal 13.4 and 40.2, platelet count was normal. BUN elevated 25 creatinine normal 1.06 glucose elevated 132. The patient's examination is consistent with fecal impaction and constipation most likely secondary to his oxycodone use for his knee pain. Patient was mainly disimpacted and given a soapsuds enema with significant bowel movement. Patient was prescribed lactulose by the [facility] and he was advised to continue taking this medication as directed Admission/Observation Consideration of admission/observation: Escalation of care including admission/observation considered Lab Data [facility] Lab Attestation statement: I reviewed the patient's lab results. 06/25/23 13:34 06/25/23 13:34 Labs: Lab Results 06/25/23 Range/Units 13:34 WBC 14.0 H (4.8-10.8) X10*3/uL RBC 4.27 L (4.60-5.80) X10*6/uL Hgb 13.4 L (14.0-18.0) g/dl Hct 40.2 L (42.0-52.0) % MCV 94.1 (80.0-98.0) fL MCH 31.4 (27.0-33.0) pg MCHC 33.3 (31.0-36.0) g/dl RDW 13.4 (11.0-16.0) % Plt Count 385 (160-400) X10*3/uL MPV 9.1 L (9.4-12.4) fL Immature Gran % (Auto) 0.4 (0.0-0.4) % Neut % (Auto) 87.2 H (45-73) % Lymph % (Auto) 5.4 L (20-40) % [place] % (Auto) 6.3 (2-11) % Eos % (Auto) 0.4 (0-4) % Baso % (Auto) 0.3 (0-2) % Lymph # (Auto) 0.8 L (1.2-4.9) X10*3/uL [place] # (Auto) 0.9 (0.1-1.2) X10*3/uL Eos # (Auto) 0.1 (0.0-0.4) X10*3/uL Baso # (Auto) 0.0 (0.0-0.2) X10*3/uL Abs Immat Gran (auto) 0.06 H (0.00-0.03) X10*3/uL Absolute Neuts (auto) 12.2 H (2.0-8.3) x10*3/uL Absolute Nucleated RBC 0.000 (0.0-0.012) X10*3/uL Nucleated RBC % (auto) 0.0 (0.0-0.2) /100WBC Sodium 142 (135-145) mmol/L Potassium 4.5 (3.3-5.1) mmol/L Chloride 106 (96-108) mmol/L Carbon Dioxide 24 (22-29) mmol/L Anion Gap 17 (12-20) BUN 25 H (9-16) mg/dL Creatinine 1.06 (0.5-1.4) mg/dL Estim Creat Clear Calc 70.5 Estimated GFR > 60 Random Glucose 132 H (60-115) mg/dL Calcium 10.1 D (8.4-10.2) mg/dL Total Bilirubin 0.7 (0.0-1.0) mg/dL Direct Bilirubin 0.3 (0.0-0.5) mg/dL AST 24 (5-37) U/L ALT 20 (0-40) U/L Alkaline Phosphatase 142 H (39-117) U/L Total Protein 7.5 (6.5-8.0) g/dL Albumin 4.3 (3.5-5.0) g/dL Lipase 12 (8-78) U/L Discharge Plan Discharge Clinical Impression: Fecal impaction, Acute constipation Patient Disposition: Home, Self-Care Instructions: Constipation (ED) Additional Instructions: [facility] Increase your fluid intake to help prevent constipation. Follow-up with your doctor in 2 days. Please return to the emergency department if your symptoms get worse or if you develop any symptoms that are concerning to you. Prescriptions: No Action atorvastatin 80 mg Tablet 80 mg PO DAILY flecainide 150 mg Tablet 150 mg PO Q12H acyclovir 400 mg Tablet 400 mg PO BID aspirin 81 mg Tablet,Delayed Release (Dr/Ec) 81 mg PO DAILY acetaminophen 650 mg Tablet 650 mg PO QID PRN (Reason: Pain) gabapentin 300 mg Capsule 300 mg PO BEDTIME montelukast 10 mg Tablet 10 mg PO DAILY albuterol sulfate [ProAir HFA] 90 mcg/actuation Hfa Aerosol Inhaler 2 puff INHALATION Q4-6H PRN (Reason: Wheezing) melatonin 1 mg Tablet 1 mg PO BEDTIME PRN (Reason: Insomnia) Spiriva Respimat 2.5 mcg/actuation Mist 2 puff INHALATION DAILY tamsulosin 0.4 mg Capsule 0.4 mg PO DAILY amlodipine [Norvasc] 5 mg tablet 5 mg PO DAILY 30 Days Qty: 30 0RF docusate sodium [Colace] 100 mg capsule 100 mg PO DAILY 30 Days Qty: 30 0RF polyethylene glycol 3350 [Miralax] 17 gram/dose powder 17 g PO DAILY 30 Days Qty: 510 0RF
[2023-06-25 13:41] LABS: MANUAL DIFF FLAG NO
--- NOTE | 2023-06-25 13:42 | PC.NURSE ---
labs obtained/sent to lab.
[2023-06-25 13:47] LABS: Basophils Percent Auto 0.3 % (0-2); Eosinophils Absolute Auto 0.1 X10*3/uL (0.0-0.4); Eosinophils Percent Auto 0.4 % (0-4); Hematocrit 40.2 % (42.0-52.0); Hemoglobin 13.4 g/dl (14.0-18.0); Imm Gran Abs Auto 0.06 X10*3/uL (0.00-0.03); Imm Gran Pct Auto 0.4 % (0.0-0.4); Lymphocytes Absolute Auto 0.8 X10*3/uL (1.2-4.9); Lymphocytes Percent Auto 5.4 % (20-40); Mean Corpuscular HGB Conc 33.3 g/dl (31.0-36.0); Mean Corpuscular Hemoglobin 31.4 pg (27.0-33.0); Mean Corpuscular Volume 94.1 fL (80.0-98.0); Mean Platelet Volume 9.1 fL (9.4-12.4); Monocytes Absolute Auto 0.9 X10*3/uL (0.1-1.2); Monocytes Percent Auto 6.3 % (2-11); Neutrophils Absolute Auto 12.2 x10*3/uL (2.0-8.3); Neutrophils Percent Auto 87.2 % (45-73); Platelet Count 385 X10*3/uL (160-400); Red Blood Count 4.27 X10*6/uL (4.60-5.80); Red Cell Distribution Width 13.4 % (11.0-16.0)
--- NOTE | 2023-06-25 13:53 | PC.NURSE ---
a&ox4. vss and up to date. pt presents to ED after not being able to have BM x 1 week. denies feeling nauseous - no episodes of vomiting. pt verbalizes have slight diarrhea but no solid stool. pt also verbalizing that he has been unable to urinate for unknown amount of time - states that there has been no increase/decrease in PO intake. bladder scanner displays as 233ml prior to voiding. pt attempting to urinate in bathroom. effectiveness pending. pt waiting to be seen by ED provider. plan of care ongoing.
[2023-06-25 14:06] LABS: Alanine Aminotransferase 20 U/L (0-40); Albumin Level 4.3 g/dL (3.5-5.0); Alkaline Phosphatase 142 U/L (39-117); Anion Gap 17 (12-20); Aspartate Amino Transferase 24 U/L (5-37); Bilirubin Direct 0.3 mg/dL (0.0-0.5); Bilirubin Total 0.7 mg/dL (0.0-1.0); Blood Urea Nitrogen 25 mg/dL (9-16); Calcium 10.1 mg/dL (8.4-10.2); Carbon Dioxide 24 mmol/L (22-29); Chloride 106 mmol/L (96-108); Creatinine Clr Calc Pharmacy 70.5; Estimated Glomerular Filt Rate > 60; Glucose Random 132 mg/dL (60-115); Lipase 12 U/L (8-78); Potassium 4.5 mmol/L (3.3-5.1); Sodium 142 mmol/L (135-145); Total Protein 7.5 g/dL (6.5-8.0)
--- NOTE | 2023-06-25 14:08 | PC.NURSE ---
no success noted when trying to urinate. provider aware.
--- NOTE | 2023-06-25 14:21 | PC.NURSE ---
successful manual disimpaction performed by dr. morris. pt tolerated well.
[2023-06-25 14:49] VITALS: BP 142/54; PULSE 83; RESP 16; O2SAT 97
--- NOTE | 2023-06-25 15:18 | PC.NURSE ---
soap suds enema administered w/ success. pt able to urinate as well w/o complications. dr. morris notified/aware.
== END 2023-06-25 16:45 | disposition home or self-care (01) ==
PROVIDERS: Physician Assistant Medical; Emergency Provider Emergency Medicine Emergency Medical Services; PCP Nurse Practitioner Family
DX: K59.00 Constipation, unspecified (principal); Z79.899 Other long term (current) drug therapy
CPT/HCPCS: 36415; 80048; 80076; 83690; 85025; 99284